=== PATIENT | female | born 1985 | race Hispanic/Latino ===

== ENCOUNTER 2017-11-21 11:28 | Emergency (ER) | payer OTHER ==
[2017-11-21 11:51] VITALS: BMI 21.5
[2017-11-21 12:23] VITALS: RESP 18
[2017-11-21 13:39] LABS: BASO # 0.1 K/uL (0.0-0.2); BASO % 0.8 % (0.0-2.0); EOS # 0.4 K/uL (0.0-0.7); EOS % 4.7 % (0.0-4.0); HEMOGLOBIN 13.1 g/dL (12.0-16.0); LYMPH # 2.5 K/uL (1.0-4.3); LYMPH % 31.9 % (20.0-40.0); MEAN CORPUSCULAR HEMOGLOBIN 30.9 pg (27.0-31.0); MEAN CORPUSCULAR HGB CONC 35.1 g/dL (33.0-37.0); MEAN PLATELET VOLUME 7.7 fl (7.2-11.7); MONO # 0.6 K/uL (0.0-0.8); MONO % 7.4 % (0.0-10.0); NEUT # 4.3 K/uL (1.8-7.0); NEUT % 55.2 % (50.0-75.0); RBC 4.26 Mil/uL (3.80-5.20); RED CELL DISTRIBUTION WIDTH 12.7 % (11.5-14.5); WHITE BLOOD COUNT 7.7 K/uL (4.8-10.8)
[2017-11-21 13:47] LABS: INR 1.1 (0.9-1.2); PARTIAL THROMBOPLASTIN TIME 31.6 Seconds (25.6-37.1); PROTHROMBIN TIME 11.8 Seconds (9.8-13.1)
[2017-11-21 13:53] LABS: BLOOD UREA NITROGEN 9 mg/dl (7-17); CALCIUM 9.8 mg/dL (8.4-10.2); GFR AFRICAN-AMERICAN > 60; GFR NON-AFRICAN AMERICAN > 60
--- NOTE | 2017-11-21 14:07 | ED PDOC ---
HPI: Chest Pain Time Seen by Provider: 11/21/17 11:47 Chief Complaint (Nursing): Chest Pain Chief Complaint (Provider): Palpitation, chest pain History Per: Patient History/Exam Limitations: no limitations Onset/Duration Of Symptoms: Hrs Current Symptoms Are (Timing): Still Present Additional Complaint(s): 32yo female, with EGA of 12 weeks, presents to ED with complaints of chest pain and palpitation since this morning. Patient states the chest pain is in her anterior chest and intermittent, however the palpitations have been constant since the morning. She denies any associated difficulty breathing, leg swelling or pain. She also denies any fever, cough, dizzines, or syncope. Patient denies any abdominal pain or complaints. She has no other complaints. Past Medical History Reviewed: Historical Data, Nursing Documentation, Vital Signs Vital Signs: Last Vital Signs Temp Pulse 62 11/21/17 16:06 Resp 18 11/21/17 16:06 BP 110/70 11/21/17 16:06 Pulse Ox 98 11/21/17 16:06 - Medical History PMH: Hyperthyroidism (not on medication) - Surgical History Surgical History: No Surg Hx - Family History Family History: States: No Known Family Hx - Allergies Allergies/Adverse Reactions: Allergies Allergy/AdvReac Type Severity Reaction Status Date / Time fluconazole [From Diflucan] Allergy RASH Verified 11/21/17 12:19 Review of Systems ROS Statement: Except As Marked, All Systems Reviewed And Found Negative Constitutional: Negative for: Fever, Chills Cardiovascular: Positive for: Chest Pain, Palpitations Respiratory: Negative for: Cough, Shortness of Breath Gastrointestinal: Negative for: Abdominal Pain Musculoskeletal: Negative for: Other (leg swelling) Neurological: Negative for: Dizziness Physical Exam - Reviewed Nursing Documentation Reviewed: Yes Vital Signs Reviewed: Yes - Physical Exam Appears: Positive for: Non-toxic, No Acute Distress Head Exam: Positive for: ATRAUMATIC, NORMAL INSPECTION, NORMOCEPHALIC Skin: Positive for: Normal Color Eye Exam: Positive for: Normal appearance Neck: Positive for: Supple Cardiovascular/Chest: Positive for: Regular Rate, Rhythm. Negative for: Murmur Respiratory: Positive for: Normal Breath Sounds. Negative for: Wheezing Gastrointestinal/Abdominal: Positive for: Normal Exam, Soft. Negative for: Tenderness Extremity: Positive for: Normal ROM. Negative for: Pedal Edema, Calf Tenderness Neurologic/Psych: Positive for: Alert, Oriented. Negative for: Motor/Sensory Deficits - Laboratory Results Result Diagrams: 11/21/17 13:20 11/21/17 13:20 - ECG ECG: Positive for: Interpreted By Me, Viewed By Me ECG Rhythm: Positive for: Normal QRS, Normal ST Segment, Sinus Rhythm Rate: 68 O2 Sat by Pulse Oximetry: 95 (RA) Medical Decision Making Medical Decision Making: Impression: Chest pain, palpitation Differential: ACS, PE, cardiac arrhythmia from hyperthyroidsm Plan: -- EKG -- Labs Time: 1515 Labs reviewed and showed no clinically significant abnormalities. Patient with negative DDimer and Troponin studies. Patient states she feels much better. Case discussed with Dr. Kwok, patient 's OBGYN who states the patient can follow up in office. Patient instructed to follow up without fail. Stable for discharge home. Scribe Attestation: Documented by Nazanin Mathew, acting as a scribe for Stefania King MD. Provider Scribe Attestation: All medical record entries made by the Scribe were at my direction and personally dictated by me. I have reviewed the chart and agree that the record accurately reflects my personal performance of the history, physical exam, medical decision making, and the department course for this patient. I have also personally directed, reviewed, and agree with the discharge instructions and disposition. Disposition - Clinical Impression Clinical Impression: Chest pain, Palpitations, Hyperthyroidism - Patient ED Disposition Is Patient to be Admitted: No Discussed With .: Suraj Kwok Doctor Will See Patient In The: Office Counseled Patient/Family Regarding: Studies Performed, Diagnosis - Disposition Referrals: uSraj Kwok MD [Family Provider] - Disposition: Routine/Home Disposition Time: 15:00 Condition: GOOD Additional Instructions: Return for worsening. Follow up with your PCP in 2-3 days. Instructions: Chest Pain, Palpitations
[2017-11-21 16:07] VITALS: BP 110/70
--- NOTE | 2017-11-21 19:46 | CARD ---
APPROVED REPORT EKG Measurement Heart [id number] <Conclusion> Normal sinus rhythm Nonspecific ST abnormality Abnormal ECG artefact present
[2017-11-22 22:12] VITALS: PULSE 68; O2SAT 95
== END 2017-11-21 15:23 | disposition home or self-care (01) ==
LOC: H.ER 11:28
DX: R07.89 Other chest pain (principal); R00.2 Palpitations; O99.281 Endocrine, nutritional and metabolic diseases complicating pregnancy, first trimester; O26.891 Other specified pregnancy related conditions, first trimester; Z3A.12 12 weeks gestation of pregnancy

== ENCOUNTER 2018-01-05 10:19 | Emergency (ER) | payer OTHER ==
[2018-01-05 10:23] VITALS: BMI 21.1
[2018-01-05] MEDS ORDERED: Lactated Ringer's 1,000 ML IV SCH (11:00)
--- NOTE | 2018-01-05 11:04 | ED PDOC ---
HPI:Nausea, Vomiting, Diarrhea Time Seen by Provider: 01/05/18 10:27 Chief Complaint (Nursing): Abdominal Pain Chief Complaint (Provider): Vomiting, at 18 weeks gestation History Per: Patient History/Exam Limitations: no limitations Onset/Duration Of Symptoms: Days (1) Current Symptoms Are (Timing): Better Additional Complaint(s): Pt states she went to eat 2 night ago and yesterday was having vomiting all day. PT states she did take an oral zofran but vomited it. Pt states today she was able to tolerate a small amount of water and cereal. PT denies current nausea and reports mild suprapubic discomfort, more on the right Past Medical History Reviewed: Historical Data, Nursing Documentation, Vital Signs Vital Signs: Last Vital Signs Temp 98.4 F 01/05/18 10:23 Pulse 71 01/05/18 10:23 Resp 16 01/05/18 10:23 BP 106/64 01/05/18 10:23 Pulse Ox 98 01/05/18 10:23 - Medical History PMH: Hyperthyroidism (not on medication) - Surgical History Surgical History: No Surg Hx - Family History Family History: States: No Known Family Hx - Allergies Allergies/Adverse Reactions: Allergies Allergy/AdvReac Type Severity Reaction Status Date / Time fluconazole [From Diflucan] Allergy RASH Verified 01/05/18 10:33 Review of Systems ROS Statement: Except As Marked, All Systems Reviewed And Found Negative Gastrointestinal: Positive for: Nausea, Vomiting Genitourinary Female: Negative for: Dysuria, Vaginal Bleeding, Pelvic Pain Physical Exam - Reviewed Nursing Documentation Reviewed: Yes Vital Signs Reviewed: Yes - Physical Exam Appears: Positive for: Well, Non-toxic, No Acute Distress Head Exam: Positive for: ATRAUMATIC, NORMAL INSPECTION, NORMOCEPHALIC Skin: Positive for: Normal Color, Warm, DRY Eye Exam: Positive for: Normal appearance ENT: Positive for: Normal ENT Inspection Neck: Positive for: Normal, Painless ROM Cardiovascular/Chest: Positive for: Regular Rate, Rhythm Respiratory: Positive for: Normal Breath Sounds. Negative for: Accessory Muscle Use, Respiratory Distress Gastrointestinal/Abdominal: Positive for: Normal Exam, Soft. Negative for: Tenderness Back: Positive for: Normal Inspection Extremity: Positive for: Normal ROM Neurologic/Psych: Positive for: Alert, Oriented - Laboratory Results Result Diagrams: 01/05/18 11:05 01/05/18 11:05 - ECG O2 Sat by Pulse Oximetry: 98 Medical Decision Making Medical Decision Making: Discussed case with Dr. Kwok. Recommended US, labs, fluids and zofran. Pt currently without nausea. Discussed giving zofran for nausea. 1 L IV fluids given. 1315 - Pt reports being hungry. Gave apple juice which patient tolerated. Dr. Kwok currently in OR Disposition - Clinical Impression Clinical Impression: Vomiting affecting - Patient ED Disposition Is Patient to be Admitted: No Counseled Patient/Family Regarding: Diagnosis, Need For Followup - Disposition Disposition: Routine/Home Disposition Time: 13:14 Condition: GOOD Instructions: Nausea and Vomiting of Forms: [facility] (Polish)
[2018-01-05 11:23] LABS: BASO % 0.3 % (0.0-2.0); EOS # 0.2 K/uL (0.0-0.7); EOS % 3.2 % (0.0-4.0); LYMPH # 0.8 K/uL (1.0-4.3); LYMPH % 13.4 % (20.0-40.0); MEAN CELL VOLUME 88.3 fl (81.0-99.0); MEAN CORPUSCULAR HEMOGLOBIN 30.7 pg (27.0-31.0); MEAN CORPUSCULAR HGB CONC 34.7 g/dL (33.0-37.0); MEAN PLATELET VOLUME 7.6 fl (7.2-11.7); MONO # 0.3 K/uL (0.0-0.8); NEUT # 4.4 K/uL (1.8-7.0); NEUT % 78.1 % (50.0-75.0); NRBC % 0.1 % (0.0-0.0); RBC 4.22 Mil/uL (3.80-5.20); RED CELL DISTRIBUTION WIDTH 12.8 % (11.5-14.5); WHITE BLOOD COUNT 5.7 K/uL (4.8-10.8)
[2018-01-05 11:31] LABS: ALB/GLOB RATIO 1.3 (1.0-2.1); ALBUMIN 3.8 g/dL (3.5-5.0); ALT/SGPT 30 U/L (9-52); AST/SGOT 23 U/L (14-36); BLOOD UREA NITROGEN 8 mg/dl (7-17); CALCIUM 9.1 mg/dL (8.4-10.2); GFR AFRICAN-AMERICAN > 60; GFR NON-AFRICAN AMERICAN > 60; LIPASE 68 U/L (23-300)
--- NOTE | 2018-01-05 12:37 | US ---
PROCEDURE: Stable ultrasound, limited 2nd trimester HISTORY: 18 weeks, vomiting, abdominal pain COMPARISON: None available. TECHNIQUE: Standard protocol for this study/examination. FINDINGS: Cephalic presentation. Fundal Placenta. No evidence of abruption or previa Gestational age derived from LMP 18 weeks 2 days. JAMES 06/06/2018. Gestational age derived from the following biometric parameters 18 weeks 4 days. JAMES 06/04/2018 Biparietal diameter 4.31 cm Head circumference 15.87 cm Abdominal circumference 12.69 cm Femur length 2.72 cm Estimated weight 235.96 g Calculated cardiac rate 156 beats per min. Closed cervix measuring 4.31 cm IMPRESSION: 18 weeks 4 days live intrauterine gestation. Gestational concordance documented.
[2018-01-05 13:34] VITALS: BP 106/68; PULSE 72; RESP 18; TEMP 98.6; O2SAT 99
== END 2018-01-05 13:35 | disposition home or self-care (01) ==
LOC: H.ER 10:19
DX: O21.9 Vomiting of pregnancy, unspecified (principal); E05.90 Thyrotoxicosis, unspecified without thyrotoxic crisis or storm; Z3A.18 18 weeks gestation of pregnancy
CPT/HCPCS: 76815; 80053; 81025; 83690; 85025; 96360; 99284; J7120

== ENCOUNTER 2018-05-30 21:06 | Inpatient (IN) | payer OTHER ==
[2018-05-30] MEDS ORDERED: Oxytocin 30 UNITS in Sodium Chloride 0.9% 500 ML IV ONE (22:02)
[2018-05-30 23:37] LABS: BASO # 0.1 K/uL (0.0-0.2); BASO % 0.6 % (0.0-2.0); EOS # 0.3 K/uL (0.0-0.7); EOS % 3.1 % (0.0-4.0); HEMOGLOBIN 12.3 g/dL (12.0-16.0); LYMPH # 2.4 K/uL (1.0-4.3); LYMPH % 21.1 % (20.0-40.0); MEAN CELL VOLUME 90.5 fl (81.0-99.0); MEAN CORPUSCULAR HEMOGLOBIN 31.8 pg (27.0-31.0); MEAN CORPUSCULAR HGB CONC 35.1 g/dL (33.0-37.0); MEAN PLATELET VOLUME 8.5 fl (7.2-11.7); MONO # 0.7 K/uL (0.0-0.8); MONO % 6.3 % (0.0-10.0); NEUT # 7.7 K/uL (1.8-7.0); NEUT % 68.9 % (50.0-75.0); RBC 3.85 Mil/uL (3.80-5.20); RED CELL DISTRIBUTION WIDTH 13.1 % (11.5-14.5); WHITE BLOOD COUNT 11.2 K/uL (4.8-10.8)
--- NOTE | 2018-05-31 05:16 | OBADHP ---
Datetime: 05/30/2018 23:32 Pelvic Type - PN: Not Done Extremities - PN: Normal Abdomen - PN: Normal Back - PN: Normal Breast - PN: Normal Lungs - PN: Normal Heart - PN: Normal Thyroid - PN: Not Done Neurologic - PN: Normal HEENT - PN: Normal General - PN: Normal FHR - Baseline A Provider: 130s Membranes, Provider: Intact Comments, ACOG Physical Exam: General: Well, NAD Chest: RRR, S1 S2 present Lungs: CTA B/L Abdomen: Gravid, NT Ext: No pedal edema or calf tenderness Neuro: AAO x 3 IP Hx Assessment: The History has been Reviewed and is Current Vital Signs Provider: Reviewed; Within Normal Limits NICHD Variability Prov Fetus A: Moderate 6-25bpm NICHD Accel Fetus A IP Provider: [id number] FHR Category Provider Fetus A: Category I NICHD Decel Fetus A IP Provider: None Genitourinary Exam: Not Done DTRs - PN: Not Done EGA AdmitDate IP: 39.0 IP Admit Plan: Admit to unit Datetime: 05/30/2018 22:10 Admit Comment, IP Provider: 32 y/o , 39.0 wks based on LMP 08/30/18 and JAMES of 06/06/18 sent t o [facility] for evaluation and IOL by Dr. Box. Patient went to see Brenton Weeks today for US which showed AC lagging behind. Patient reports irregular contractions, lower abdominal and back pain inter mittently for last 5-6 days. Reports feeling normal movements. Denies LOF or VB. PNC: Dr. Box course: + HSV I started on valtrex at 36 wks. 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 PSHx: Breast implant 2001 Allergies: Almonds-Rash Diflucan - Rash F/H: Thyroid in mother and father SocialHx: Denies alochol/tobacco/drugs since Medications: Valtrex since 3 weeks, Nexium and PNVs PE: General: Well, NAD Chest: RRR, S1 S2 present Lungs: CTA B/L Abdomen: Gravid, NT Ext: No pedal edema or calf tenderness Neuro: AAO x 3 A/P: 32 y/o , 39.0 wks based on LMP 08/30/18 and JAMES of 06/06/18 sent to [facility] for IOL by Dr. Box. - Scheduled IOL due to AC 1% - ? IUGR - Admit to unit - EFM and toco monitoring Case discussed with attending Denis Landry, PGY1 OB Hospitalist note: Pt seen and examined by me...SVE 1cm long...for Cervidl IOL MAHNDO Presentation-Admit: Vertex Contraction Comments Provider: irregular IP Chief Complaint: Uterine contractions; Other IP Adm Impression: Term, intrauterine ; No Active Labor; Intact Membranes Datetime: 05/12/2018 01:31 Gestation - Est Wks by US: 36.3 Dilatation, Provider: 1 cm Station, Provider: -4
--- NOTE | 2018-05-31 12:00 | OBPN ---
Datetime: 05/30/2018 23:32 IP Progress Impression: Normal progression of labor IP Progress Plan: Continue present management Membranes, Provider: Intact FHR - Baseline A Provider: 130s IP Progress Note Comment: Patient doing well reports occasional uterine contractions of mild intensi ty Vital signs stable afebrile Category 1 tracing Pelvic exam 3 cm 75% -2 AROM Adequate pelvis, vertex presentation, estimated weight 7-1/2 pounds, anticipate normal vagin al delivery Vital Signs Provider: Reviewed; Within Normal Limits NICHD Accel Fetus A IP Provider: [id number] FHR Category Provider Fetus A: Category I NICHD Variability Prov Fetus A: Moderate 6-25bpm NICHD Decel Fetus A IP Provider: None Datetime: 05/30/2018 22:10 Contraction Comments Provider: irregular Presentation-Admit: Vertex Datetime: 05/12/2018 01:31 Gestation - Est Wks by US: 36.3 Dilatation, Provider: 1 cm Station, Provider: -4
[2018-05-31] MEDS ORDERED: Fentanyl/Bupivacaine HCl 250 ML EPI ONE (12:40)
[2018-05-31] MEDS ORDERED: Oxytocin 30 UNIT 30 UNITS/500 ML BAG IV ONE ×2 (15:21→19:30)
[2018-05-31] MEDS ORDERED: OXYTOCIN/0.9 % NS 20 UNIT/1,000 ML BAG IV SCH (19:30)
[2018-05-31] MEDS ORDERED: Lactated Ringer's 1,000 ML IV SCH (21:30)
[2018-05-31] MEDS ORDERED: Oxycodone/Acetaminophen 5/325 mg Tab PO PRN (22:42)
[2018-05-31] MEDS ORDERED: Oxytocin 30 UNITS in Sodium Chloride 0.9% 500 ML IV ONE (22:42)
--- NOTE | 2018-05-31 22:46 | OBDS ---
MATERNAL INFORMATION Provider Comments: Delivered live baby girl 10:07 PM the baby was bulb suctioned on the perineum and transferred to the maternal chest cord was clamped and cut 3 vessels noted cord blood was obtained a nd sent to the lab. The placenta was delivered at 10:12 PM intact there was a first-degree laceration was repaired with 2-0 Rapide. Estimated blood loss was 150 mL The mother tolerated procedure well th e baby went to the well[facility]baby nursery with Apgars of 9 and 9 LABOR SUMMARY EDC: 06/06/2018 00:00 No. Babies in Womb: 0 Labor Anesthesia: Epidural LABOR INFORMATION Onset of Labor: 05/31/2018 09:40 Complete Dilatation: 05/31/2018 18:52 Cervical Ripening Agents: Cervidil Group B Beta Strep: Negative MEMBRANES Membranes Rupture Method: Artificial Amniotic Fluid Color: Clear Amniotic Fluid Amount: Small STAGES OF LABOR Stage 1 hrs: 9 Stage 1 min: 12 PRESENTATION/POSITION BABY A Presentation: Cephalic
[2018-06-01] MEDS: Benzocaine/Menthol SPRAY TOP PRN (01:09)
[2018-06-01] MEDS ORDERED: Influenza Vaccine 60 MCG/0.5 ML SYR (3 yr & up) IM ONE (06:00)
[2018-06-01 08:00] LABS: BASO # 0.1 K/uL (0.0-0.2); BASO % 0.5 % (0.0-2.0); EOS # 0.2 K/uL (0.0-0.7); EOS % 1.4 % (0.0-4.0); HEMOGLOBIN 11.2 g/dL (12.0-16.0); LYMPH # 1.9 K/uL (1.0-4.3); LYMPH % 15.5 % (20.0-40.0); MEAN CORPUSCULAR HEMOGLOBIN 31.9 pg (27.0-31.0); MEAN CORPUSCULAR HGB CONC 35.1 g/dL (33.0-37.0); MEAN PLATELET VOLUME 8.2 fl (7.2-11.7); MONO # 0.8 K/uL (0.0-0.8); MONO % 6.4 % (0.0-10.0); NEUT # 9.5 K/uL (1.8-7.0); NEUT % 76.2 % (50.0-75.0); RBC 3.51 Mil/uL (3.80-5.20); RED CELL DISTRIBUTION WIDTH 13.5 % (11.5-14.5); WHITE BLOOD COUNT 12.5 K/uL (4.8-10.8)
--- NOTE | 2018-06-02 01:23 | OBPPN ---
Datetime: 06/01/2018 13:24 PP Pain Prov: Within normal limits PP Nausea Prov: Denies PP Flatus Prov: Yes PP Breasts Prov: Normal PP Heart Prov: Normal PP Lungs Prov: Normal PP Abdomen/Uterus Prov: Normal PP Lochia Prov: Normal PP Vulva/Perineum Prov: Normal PP CVA Tenderness Prov: Normal PP Extremities Prov: Normal PP Comments Phys Exam Prov: Abdomen soft, nontender, nondistended Uterus firm, below umbilicus No deep Tenderness bilaterally PP Impression Prov: Normal progression PP Plan Prov: Continue present management PP Progress Note Prov: day 1 status post , patient recovering well Ambulation CBC Regular diet Pain control Anticipate discharge home tomorrow IP PP Procedures: None Vital Signs Provider PP: Reviewed; Within Normal Limits
[2018-06-02] MEDS ORDERED: Lansinoh for Breast Feeding Mothers TP ONE (06:14)
[2018-06-02] MEDS: Benzocaine/Menthol SPRAY TOP PRN (08:41)
--- NOTE | 2018-06-02 08:46 | OBDCSUM ---
Datetime: 05/12/2018 01:45 Discharge Instructions, Provider: Routine instructions given Discharge Diagnosis, Provider: Term Delivered Contraception discussed, Prov: Yes Disch Activity Restrictions: No sexual activity; Nothing in vagina - [place], tampons, douche Discharge Comment, Provider: Patient cleared for discharge Contraception after Delivery: Undecided
--- NOTE | 2018-06-02 08:47 | OBPPN ---
Datetime: 06/02/2018 08:45 PP Pain Prov: Within normal limits PP Nausea Prov: Denies PP Flatus Prov: Yes PP Breasts Prov: Normal PP Heart Prov: Normal PP Lungs Prov: Normal PP Abdomen/Uterus Prov: Normal PP Lochia Prov: Not Done PP Vulva/Perineum Prov: Not Done PP CVA Tenderness Prov: Normal PP Extremities Prov: Normal PP Impression Prov: Normal progression PP Plan Prov: Discharge PP Progress Note Prov: Doing well Patient cleared for discharge Vital Signs Provider PP: Reviewed
[2018-06-02 21:32] VITALS: BP 110/77; PULSE 62; RESP 16; TEMP 98; O2SAT 100
== END 2018-06-02 13:20 | disposition home or self-care (01) | DRG 775 ==
LOC: H.EROB2 21:06 → H.L&D 22:02 → H.OB/GYN 06-01 00:05
PROVIDERS: ADMIT Obstetrics & Gynecology; ATTEND Obstetrics & Gynecology
PROC: 0HQ9XZZ Repair Perineum Skin, External Approach (ICD-10-PCS; principal; 2018-05-31)
PROC: 10E0XZZ Delivery of Products of Conception, External Approach (ICD-10-PCS; 2018-05-31)
PROC: 4A1HXCZ Monitoring of Products of Conception, Cardiac Rate, External Approach (ICD-10-PCS; 2018-05-31)
DX: O36.5990 Maternal care for other known or suspected poor fetal growth, unspecified trimester, not applicable or unspecified (principal); O70.0 First degree perineal laceration during delivery; Z37.0 Single live birth; Z3A.39 39 weeks gestation of pregnancy